=== PATIENT | female | born 2000 | race Caucasian/White ===

== ENCOUNTER 2021-11-22 02:47 | Emergency (ER) | payer MEDICAID ==
[~2021-11-22] VITALS: Ht 160 cm; Wt 90.7 kg
[2021-11-22 02:55] VITALS: BP_SYST 130
[2021-11-22] MEDS ORDERED: ONDANSETRON 4 MG ODT TAB PO ONE (05:00)
[2021-11-22] MEDS ORDERED: ONDANSETRON 4 MG ODT TAB ONE (05:05)
[2021-11-22 05:55] VITALS: BP_SYST 130
== END 2021-11-22 05:55 | disposition home or self-care (01) ==
LOC: SED 02:47
DX: T67.5XXA Heat exhaustion, unspecified, initial encounter (principal); X58.XXXA Exposure to other specified factors, initial encounter; Y93.89 Activity, other specified; Y92.89 Other specified places as the place of occurrence of the external cause; Y99.8 Other external cause status
CPT/HCPCS: 81025; 99283; Q0162